=== PATIENT | female | born 1950 | race Hispanic/Latino ===

== ENCOUNTER → 2018-09-21 | Outpatient (CLI) | payer MEDICARE | END | disposition home or self-care (01) | LOC: SHCH 09:19 | PROVIDERS: ATTEND Internal Medicine Cardiovascular Disease | DX: I10 Essential (primary) hypertension (principal) | CPT/HCPCS: 93306 ==

== ENCOUNTER 2023-03-26 11:14 | Emergency (ER) | payer MEDICARE ==
[~2023-03-26] VITALS: Ht 157.5 cm; Wt 65.8 kg
[2023-03-26] MEDS ORDERED: PREDNISONE 20 MG TABLET PO ONE (13:00)
[2023-03-26 13:47] VITALS: BP 137/67; PULSE 72; RESP 18; O2SAT 97
== END 2023-03-26 13:46 | disposition home or self-care (01) ==
LOC: EDH 11:14
DX: H92.01 Otalgia, right ear (principal); H69.81 Other specified disorders of Eustachian tube, right ear; E78.00 Pure hypercholesterolemia, unspecified; I10 Essential (primary) hypertension; Z79.52 Long term (current) use of systemic steroids